=== PATIENT | male | born 1945 | race Caucasian/White ===

== ENCOUNTER → 2021-09-08 | Day surgery (SDC) | payer MEDICARE, OTHER ==
[~2021-09-08] VITALS: Ht 175.3 cm; Wt 83.9 kg
[~2021-09-08] MED LIST: ASPIRIN EC325 MG PO; CLARITIN10 MG PO; DULCOLAX5 MG PO; ETODOLAC500 MG PO; LOPRESSOR25 MG PO; PERCOCET 7.5/321 TAB PO; ZOFRAN8 MG PO
== END | disposition home or self-care (01) ==
LOC: FAS 13:34
DX: H26.491 Other secondary cataract, right eye (principal)

== ENCOUNTER → 2021-10-06 | Day surgery (SDC) | payer MEDICARE, OTHER ==
[~2021-10-06] VITALS: Ht 175.3 cm; Wt 83.9 kg
== END | disposition home or self-care (01) ==
LOC: FAS 12:42
DX: H26.493 Other secondary cataract, bilateral (principal)